=== PATIENT | male | born 1980 | race Caucasian/White ===

== ENCOUNTER 2019-12-09 14:07 | Emergency (ER) | payer OTHER ==
[~2019-12-09] VITALS: Ht 177.8 cm; Wt 74.8 kg
[2019-12-09 14:40] LABS: URINE BILIRUBIN NEGATIVE (Negative); URINE BLOOD NEGATIVE (Negative); URINE CLARITY CLEAR; URINE COLOR YELLOW; URINE GLUCOSE-RANDOM NEGATIVE (Negative); URINE KETONES NEGATIVE (Negative); URINE LEUKOCYTES-REFLEX NEGATIVE (Negative); URINE NITRITE-REFLEX NEGATIVE (Negative); URINE PROTEIN NEGATIVE (Negative); URINE SPECIFIC GRAVITY 1.025 (1.005-1.030); URINE UROBILINOGEN 0.2 E.U./dl (0.2-1.0)
[2019-12-09 14:49] LABS: AMP/METHAMP Negative (Negative); BARBITURATES Negative (Negative); BENZODIAZEPINES Negative (Negative); COCAINE Negative (Negative); METHADONE Negative (Negative); OPIATES Negative (Negative); PCP Negative (Negative); THC Negative (Negative)
[2019-12-09 14:56] LABS: ABSOLUTE BASOPHILS 0.1 thou/uL (0.0-0.2); ABSOLUTE EOSINOPHILS 0.1 thou/uL (0.0-0.7); ABSOLUTE LYMPHOCYTES 2.3 thou/uL (0.8-5.3); ABSOLUTE MONOCYTES 0.6 thou/uL (0.0-1.2); ABSOLUTE NEUTROPHILS 6.1 thou/uL (1.6-8.1); BASOPHILS 1.1 %; HEMATOCRIT 46.4 % (42.0-52.0); HEMOGLOBIN 16.3 gm/dL (14.0-18.0); LYMPHOCYTES 24.7 %; MCH 30.7 pg (26.0-34.0); MCHC 35.1 g/dL (28.0-37.0); MCV 87.6 fL (80.0-100.0); MONOCYTES 6.1 %; MPV 8.5 fl. (7.2-11.1); NUCLEATED RBCS 0 /100WBC; PLATELET COUNT* 296 thou/uL (150-400); POLYS 67.1 %; RDW-CV 13.5 % (10.5-14.5); WBC 9.1 thou/uL (4.0-11.0)
[2019-12-09 15:05] LABS: CREATININE 1.2 mg/dL (0.6-1.3)
[2019-12-09 15:09] LABS: ALBUMIN 4.3 g/dL (3.4-5.0); TOTAL BILIRUBIN 0.3 mg/dL (<0.1-1.0); TOTAL PROTEIN 7.6 g/dL (6.4-8.2)
[2019-12-09 15:13] LABS: ALCOHOL < 10 mg/dL (<10); SALICYLATE 3.7 mg/dL (2.8-20.0)
[2019-12-09 15:14] LABS: ACETAMINOPHEN < 2 ug/mL (10-30)
[2019-12-10 15:28] VITALS: BP 119/68
== END 2019-12-10 15:30 ==
LOC: M.ERS 14:07
PROVIDERS: Family Medicine
DX: F29 Unspecified psychosis not due to a substance or known physiological condition (principal); F32.9 Major depressive disorder, single episode, unspecified; F12.90 Cannabis use, unspecified, uncomplicated